=== PATIENT | female | born 1945 | race Two or more races ===

== ENCOUNTER 2019-06-14 11:06 | Inpatient (IN) | payer OTHER ==
[~2019-06-14] VITALS: Ht 154.9 cm; Wt 54.4 kg
[2019-06-15] MEDS ORDERED: METFORMIN HCL500 M4 PO (08:15)
[2019-06-15] MEDS ORDERED: ANASTROZOLE1 MG PO (08:15)
[2019-06-15] MEDS ORDERED: VITAMIN D1000 UNI1 PO (08:15)
== END 2019-06-16 10:37 | disposition home or self-care (01) | DRG 307 ==
LOC: MEDJ 11:06
PROVIDERS: ADMIT Internal Medicine Cardiovascular Disease
PROC: B030ZZZ Magnetic Resonance Imaging (MRI) of Brain (ICD-10-PCS; principal; 2019-06-14)
PROC: B246ZZZ Ultrasonography of Right and Left Heart (ICD-10-PCS; 2019-06-14)
PROC: 4A12X4Z Monitoring of Cardiac Electrical Activity, External Approach (ICD-10-PCS; 2019-06-14)
PROC: B345ZZZ Ultrasonography of Bilateral Common Carotid Arteries (ICD-10-PCS; 2019-06-14)
PROC: B348ZZZ Ultrasonography of Bilateral Internal Carotid Arteries (ICD-10-PCS; 2019-06-14)
DX: I08.1 Rheumatic disorders of both mitral and tricuspid valves (principal); R55 Syncope and collapse; E11.9 Type 2 diabetes mellitus without complications; Z79.4 Long term (current) use of insulin
CPT/HCPCS: 70553